=== PATIENT | female | born 1975 | race Caucasian/White ===

== ENCOUNTER 2020-11-30 04:18 | Emergency (ER) | payer OTHER ==
[2020-11-30 05:22] LABS: HEMOGLOBIN 14.5 gm/dl (12.3-15.3); RED BLOOD COUNT 5.04 M/UL (4.00-5.10); WHITE BLOOD COUNT 6.4 K/UL (4.5-11.0)
[2020-11-30 05:43] LABS: BUN/CREATININE RATIO 11 (0-10)
[2020-11-30] MEDS ORDERED: LIDOCAINE HCL10 ML MM (09:13)
== END 2020-11-30 09:58 | disposition home or self-care (01) ==
LOC: ER1 04:18
PROVIDERS: Physician Assistant
DX: K64.4 Residual hemorrhoidal skin tags (principal); E78.5 Hyperlipidemia, unspecified; I10 Essential (primary) hypertension; M19.90 Unspecified osteoarthritis, unspecified site; Z90.710 Acquired absence of both cervix and uterus; Z79.899 Other long term (current) drug therapy; F17.210 Nicotine dependence, cigarettes, uncomplicated
CPT/HCPCS: 80053; 81001; 82272; 83605; 83690; 85025; 85610; 85730; 87086; 99284; Q9967